=== PATIENT | male | born 1960 | race Caucasian/White ===

== ENCOUNTER 2018-07-29 12:24 | Emergency (ER) | payer MEDICAID ==
[~2018-07-29] VITALS: Ht 182.9 cm; Wt 147.4 kg
[2018-07-29 12:29] VITALS: BP_SYST 155
[2018-07-29] MEDS ORDERED: ACETAMINOPHEN 500 MG TABLET PO ONE (13:30)
[2018-07-29] MEDS ORDERED: DIPH-TET-PERTUS Vaccine 0.5 ML VIAL (ADACEL) I.M. ONE (13:30)
[2018-07-29] MEDS ORDERED: BACITRACIN 1 GM OINT TP ONE (13:30)
[2018-07-29 14:31] VITALS: BP_SYST 145
== END 2018-07-29 14:31 | disposition home or self-care (01) ==
LOC: SED 12:24
DX: S81.811A Laceration without foreign body, right lower leg, initial encounter (principal); J45.909 Unspecified asthma, uncomplicated; I10 Essential (primary) hypertension; W20.8XXA Other cause of strike by thrown, projected or falling object, initial encounter; Y93.89 Activity, other specified; Y92.89 Other specified places as the place of occurrence of the external cause; Y99.8 Other external cause status
CPT/HCPCS: 90715; 99283

== ENCOUNTER 2021-04-27 19:38 | Emergency (ER) | payer MEDICAID, OTHER ==
[~2021-04-27] VITALS: Ht 182.9 cm; Wt 147.4 kg
[2021-04-27 19:59] VITALS: BP_SYST 148
--- NOTE | 2021-04-27 20:03 | NUR ---
Patient BIB by family from home. C/O left hand pain x 1 day. Patient reported, cleaned vaccum , possible bug bite his left hand, tried to pull out sting. Today patient woke up , left hand swelling, redness and pain, small hematoma.
[2021-04-27] MEDS ORDERED: LISI20TA30 PO (20:04)
--- NOTE | 2021-04-27 20:32 | NUR ---
ER at bedside examining patient.
--- NOTE | 2021-04-27 20:45 | NUR ---
X-ray at bedside.
[2021-04-27] MEDS ORDERED: BEN50 PO ×2 (21:20→21:47)
[2021-04-27] MEDS ORDERED: SULF1TAB48 PO ×2 (21:20→21:47)
[2021-04-27 21:53] VITALS: BP_SYST 148
--- NOTE | 2021-04-27 21:53 | NUR ---
Patient given written and verbal discharge instructions and verbalizes understanding. ER MD discussed with patient the results and treatment provided. Patient in stable condition. ID arm band removed. Rx of Benadryl and Bactrim given. Patient educated on pain management and to follow up with PMD. Pain Scale 2/10. Opportunity for questions provided and answered. Medication side effect fact sheet provided.
== END 2021-04-27 21:53 | disposition home or self-care (01) ==
LOC: SED 19:38
DX: M79.89 Other specified soft tissue disorders (principal); I10 Essential (primary) hypertension; J45.909 Unspecified asthma, uncomplicated; Z79.899 Other long term (current) drug therapy
CPT/HCPCS: 99283